=== PATIENT | female | born 1990 | race Two or more races ===

== ENCOUNTER 2024-11-16 12:41 | Outpatient (CLI) | payer OTHER ==
[~2024-11-16 12:41] MED LIST: FLAGYL500MG PO; IBUPROFEN400 MG PO; INTESTINEX680 MG PO; LEVAQUIN750 MG PO; PRENATAL TABLE1 EAC1 PO; ULTRACET PO; VALTREX1000 MG PO
== END 2024-11-16 13:36 | disposition home or self-care (01) ==
LOC: NST 12:41
PROVIDERS: ATTEND Obstetrics & Gynecology Maternal & Fetal Medicine
DX: Z34.83 Encounter for supervision of other normal pregnancy, third trimester (principal)

== ENCOUNTER 2025-01-02 07:49 | Inpatient (IN) | payer OTHER ==
[2025-01-02] VITALS (10 sets, daily range): BP systolic 95–110; BP diastolic 60–71; O2SAT 99
[~2025-01-02] VITALS: Ht 162.6 cm; Wt 69.4 kg
[2025-01-02] MEDS ORDERED: RINGERS SOLUTION,LACTATED 1,000 ML IV SCH (08:15)
[2025-01-02 08:45] LABS: HEMATOCRIT 33.5 % (36.0-45.00); MEAN CELL VOLUME 85.6 fL (80.00-100.00); MEAN CORPUSCULAR HEMOGLOBIN 30.8 pg (27.00-32.0); MEAN CORPUSCULAR HGB CONC 35.9 g/dl (32.0-36.0); PLATELET COUNT 282 K/uL (150-450); RED BLOOD COUNT 3.92 M/uL (4.00-6.00); RED CELL DISTRIBUTION WIDTH 14.4 % (11.5-14.5)
[2025-01-02 09:13] LABS: INR < 0.93; PARTIAL THROMBOPLASTIN TIME 26.5 SECONDS (22.0-34.0)
[2025-01-02] MEDS ORDERED: OXYTOCIN 500 ML IV ONE (09:30)
[2025-01-02 10:16] LABS: ALBUMIN 2.5 gm/dL (3.4-5.0); BILIRUBIN TOTAL 0.44 mg/dL (0.3-1.2); CREATININE SERUM 0.53 mg/dL (0.55-1.02); GFR 132.05; POTASSIUM 4.41 mEq/L (3.5-5.1); TOTAL PROTEIN 6.5 gm/dL (6.4-8.2)
[2025-01-02 10:26] LABS: PROTHROMBIN TIME 9.8 SECONDS (9.0-11.5)
[2025-01-02] MEDS ORDERED: MORPHINE SULFATE 4 MG/ML VIAL IV PRN (12:15)
[2025-01-02] MEDS ORDERED: CHLORHEXIDINE GLUCONATE 120 ML BOTTLE TOP ONE (12:41)
[2025-01-02] MEDS ORDERED: OXYTOCIN 20 UNITS/1000ML RL PIGGYBAG IV ONE (12:41)
[2025-01-02] MEDS ORDERED: ERYTHROMYCIN BASE OPHT 1GM EACH TUBE OP ONE ×2 (12:41→15:00)
[2025-01-02] MEDS ORDERED: LIDOCAINE HCL 1% 10ML VIAL ONE (12:41)
[2025-01-02] MEDS ORDERED: CHLORHEXIDINE GLUCONATE 120 ML BOTTLE TOP SCH (13:30)
[2025-01-02] MEDS ORDERED: OXYTOCIN 1,000 ML IV SCH (13:30)
[2025-01-02] MEDS ORDERED: IBUprofen 400 MG TABLET PO PRN (13:30)
[2025-01-03] VITALS: BP 95/60
[2025-01-03 07:02] LABS: HEMATOCRIT 35.1 % (36.0-45.00); HEMOGLOBIN 11.6 g/dL (12.0-15.00); MEAN CELL VOLUME 87.4 fL (80.00-100.00); MEAN CORPUSCULAR HGB CONC 33.1 g/dl (32.0-36.0); RED BLOOD COUNT 4.01 M/uL (4.00-6.00); RED CELL DISTRIBUTION WIDTH 14.6 % (11.5-14.5)
[2025-01-03 07:54] LABS: PLATELET COUNT 284 K/uL (150-450)
[2025-01-03 08:50] VITALS: BP 100/62
[2025-01-03 16:47] VITALS: BP 100/60
[2025-01-03 21:22] VITALS: BP 113/73
[2025-01-04 01:41] VITALS: BP 106/62
[2025-01-04 07:38] VITALS: BP 92/64
== END 2025-01-04 16:00 | disposition home or self-care (01) | DRG 807 ==
LOC: LDR 07:49 → OB/GYN 07:49 → LDR 12:32 → OB/GYN 13:50 → LDR 01-05 16:19
PROVIDERS: Obstetrics & Gynecology; ADMIT Obstetrics & Gynecology Maternal & Fetal Medicine; ATTEND Obstetrics & Gynecology Maternal & Fetal Medicine
PROC: 10E0XZZ Delivery of Products of Conception, External Approach (ICD-10-PCS; principal; 2025-01-02)
PROC: 4A1HXCZ Monitoring of Products of Conception, Cardiac Rate, External Approach (ICD-10-PCS; 2025-01-02)
DX: O80 Encounter for full-term uncomplicated delivery (principal); Z37.0 Single live birth; Z3A.39 39 weeks gestation of pregnancy

== ENCOUNTER 2025-02-05 14:52 | Emergency (ER) | payer OTHER ==
[~2025-02-05] VITALS: Ht 165.1 cm; Wt 63.5 kg
[2025-02-05] MEDS ORDERED: FAMOtidine 10 MG/ML (4ML VIAL) IV PUSH ONE (16:30)
[2025-02-05] MEDS ORDERED: KETOROLAC TROMETHAMINE 30 MG VIAL IU ONE (16:30)
[2025-02-05] MEDS ORDERED: 0.9 % SODIUM CHLORIDE 1,000 ML IV ONE (16:30)
[2025-02-05] MEDS ORDERED: KETOROLAC TROMETHAMINE 30 MG VIAL ONE (16:38)
[2025-02-05] MEDS ORDERED: FAMOTIDINE/PF 20 MG/2 ML VIAL ONE (16:38)
[2025-02-05 16:55] LABS: HEMOGLOBIN 13.7 g/dL (12.0-15.00); MEAN CELL VOLUME 86.9 fL (80.00-100.00); MEAN CORPUSCULAR HGB CONC 33.4 g/dl (32.0-36.0); PLATELET COUNT 294 K/uL (150-450); RED BLOOD COUNT 4.72 M/uL (4.00-6.00); RED CELL DISTRIBUTION WIDTH 14.6 % (11.5-14.5)
[2025-02-05 17:12] LABS: URINE APPEARANCE Clear; URINE BILIRRUBIN Negative (NEGATIVE); URINE BLOOD Moderate; URINE COLOR Yellow; URINE GLUCOSE Negative (NEGATIVE); URINE KETONE Negative (NEGATIVE); URINE LEUKOCYTE Trace; URINE NITRATE Negative; URINE PROTEIN Negative (NEGATIVE); URINE UROBILINOGEN 0.2 E.U./dl
[2025-02-05 17:13] LABS: INR 0.95; PARTIAL THROMBOPLASTIN TIME 30.3 SECONDS (22.0-34.0); PROTHROMBIN TIME 10.4 SECONDS (9.0-11.5)
[2025-02-05 17:17] LABS: URINE BACTERIA 313.2 uL (0.0-1933); URINE EPITHELIAL CELLS 17.3 uL (0.0-38.8); URINE RBC 37.5 uL (0.0-20.8); URINE WBC 29.5 uL (0.0-23.2)
[2025-02-05 17:26] LABS: ALBUMIN 3.6 gm/dL (3.4-5.0); ALKALINE PHOSPHATASE 161 U/L (50-136); ALT/SGPT 117 U/L (12-78); ANION GAP 9 (10.0-20.0); AST/SGOT 76 U/L (15-37); BILIRUBIN TOTAL 0.57 mg/dL (0.3-1.2); BLOOD UREA NITROGEN 11 mg/dL (7-18); BUN CREA RATIO 14 (7.0-25.0); CALCIUM 9.3 mg/dL (8.5-10.1); CARBON DIOXIDE 29 mEq/L (21-32); CHLORIDE 107 mmol/L (98-107); CREATININE SERUM 0.78 mg/dL (0.55-1.02); GFR 84.54; GLOBULINA 4.1 G/DL (2.4-3.5); GLUCOSE FASTING 85 mg/dL (65-100); OSMOLALITY SERUM 280 MOSM/KG (275-295); POTASSIUM 4.11 mEq/L (3.5-5.1); SODIUM 141 mmol/L (136-145); TOTAL PROTEIN 7.7 gm/dL (6.4-8.2)
[2025-02-05 17:28] LABS: HCG QUANTITATIVE < 1 mUI/mL (1-3)
[2025-02-05] MEDS ORDERED: PROTONIX40 MG PO (18:54)
== END 2025-02-05 19:10 | disposition home or self-care (01) ==
LOC: ER 14:55
PROVIDERS: General Practice
DX: R10.32 Left lower quadrant pain (principal); R10.9 Unspecified abdominal pain; Z91.040 Latex allergy status
CPT/HCPCS: 36415; 74177; Q9965